=== PATIENT | male | born 1985 | race Caucasian/White ===

== ENCOUNTER 2022-01-18 12:58 | Outpatient (CLI) | payer OTHER ==
[2022-01-18 13:42] VITALS: BP 133/95
--- NOTE | 2022-01-18 13:42 | SLEEP CARE CONSULTATION ---
Information from patient questionnaire entered by Rimma Nichols MA. I have reviewed and concur with the information entered by Rimma Nichols MA. This document represents the service I personally performed and the decisions made by , Inez Ventura ARNP. History of Present Illness Service Date and Time: 01/18/2022 1258 Reason for Visit: New patient (ONSET 11/2014, NO PRIORS,) Chief Complaint: reports: Unrefreshed sleep, Snoring, Excessive daytime sleepine ss, Fatigue, Frequent awakenings at night Date of Onset: 4 plus years Usual bedtime: 900 pm Time it takes to fall asleep: 5 - 30 minutes Snores at night: Yes Observed to quit breathing while asleep: No Sleeps alone due to snoring: No Number of times waking at night: 2-4 Reasons for waking at night: reports: Snoring, Other (unknown reason, dog moving around at night) Toss, Turn, or Twitch while sleeping: Yes (jerk in sleep) Recalls having dreams: No (last time about 10 years ago) Usually gets out of bed at: [id number] week day [id number] weekends Feels refreshed in the morning: No Morning headache: Yes (2-3 times a week; last 1 hr to all day, takes meds after 1-2 hrs) Sleepy or fatigued during the day: Yes Ever fallen asleep while driving: No (gets tire but no drowsy driving) Takes day naps: Yes (tries every day; only 1 time every 2 weeks) Dreams during day naps: No Prior sleep studies: No Additional HPI information: I had the pleasure of seeing RAN TY today regarding the possibility of him having a sleep disorder. His current complaints are excessive daytime sleepiness, fatigue, frequent night awakenings, snoring and unrefreshed sleep. He states he is always tired. He can wake up and after 10 minutes go back to sleep. He wakes up 2-3 times a night. He snores loudly and his tells him he "jerks" in his sleep every night. He states if he is not actively moving around he will fall asleep. He will sit on the couch with and as she is talking he will fall asleep. He will try to read a book and fall asleep. He will try to watch TV and fall asleep. He has gained about 50 pounds over the last 5 years and is trying to lose weight. He will work out a the gym about 5 days a week. 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 Patient is and lives in [place] [place]. Have you smoked in the past 12 months: No Alcohol use: Yes Alcohol amount and frequency: 1 x MONTHLY Caffeine use: Yes Caffeine amount and frequency: 1-2 X DAILY Family History Family history of sleep disordered breathing: No Allergies and Home Medications Drug allergies reviewed: Yes (NKDA) Home medication list reviewed: Yes Allergy and home medication list: OTC pre-workout supplement, prn OTC analgesic like tylenol, aleve prn headaches Review of Systems Weight gain over past 5 years: 50 Cardiovascular: denies: high blood pressure Gastrointestinal: denies: heartburn Neurological: reports: headaches Psychiatric: reports: depression (no symptoms/depressive feelings) Ear/Nose/Throat: reports: wisdom teeth removed. denies: tonsillectomy Endocrine: reports: sluggishness Immunologic: denies: allergies to food or environment Physical Exam Vital signs obtained and entered by: Todd NICHOLS CMA AAMA Blood Pressure: 133/95 (RIGHT, PULSE 81, RESP 16,) Cuff size: wrist Heart Rate: 77 O2 Saturation: 97 (PAPER MASK) Height: 5 ft 10 in Weight: 230 lb (PT CLOTHES) Body Mass Index: 33.0 BMI Classification: Obese Neck circumference: 16.5 (INCHES) Mouth and throat: narrow oropharynx Soft palate: long Hard palate: normal Uvula: normal Uvula visualization: 50% Mallampati Class II Tongue: enlarged in size with teeth joya on lateral edges Tonsils: small Neck: normal w/o lymphadenopathy or thyromegaly Heart: regular rate and rhythm Lungs: clear bilaterally Impression and Plan 1. Suspected Obstructive Sleep Apnea-Hypopnea Syndrome, as suggested by a history of loud and irregular snoring, morning headache, frequent awakening during the night, unrefreshed sleep, cognitive impairment, and excessive daytime sleepiness. Narrow oropharynx and obesity are common predisposing factors for obstructive sleep apnea-hypopnea syndrome. I recommend proceeding to polyso mnography to confirm the diagnosis and to assess severity. If the patient has significant sleep disordered breathing, a manual CPAP titration study will also be performed to find the optimal treatment pressure. I informed the patient of what the sleep studies involve and after some discussion, obtained agreement to proceed. The pathophysiology of obstructive sleep apnea-hypopnea syndrome was discussed with the patient and health risks of cardiovascular and cerebrovascular disease if not treated. AAS brochure for obstructive sleep apnea-hypopnea syndrome given and reviewed. Risks of drowsy driving discussed in detail and patient advised to avoid long distance driving and to pulling unit floorhand at the first sign of drowsiness. Patient agreed to plan. * Schedule polysomnography * Avoid long distance driving or driving when feeling sleepy. * Avoid alcohol, sedative and muscle relaxant around bedtime. * Attempt to lose weight. * Review instructions provided by trained office staff on how to prepare for the sleep study. * Return for follow-up after sleep study completed. Counseling Topics: Weight loss health impact Visit Type: In Office Time Spent with Patient (minutes): 31 Provider Statement: I spent 100% of the Face to Face Visit with the patient with greater than 50% spent counseling the patient and coordination of care.
== END 2022-01-18 12:59 | disposition home or self-care (01) ==
LOC: SC 12:58
PROVIDERS: ATTEND Nurse Practitioner Family
DX: R06.83 Snoring (principal); R51.9 Headache, unspecified; G47.8 Other sleep disorders; G47.10 Hypersomnia, unspecified; R41.89 Other symptoms and signs involving cognitive functions and awareness; E66.9 Obesity, unspecified; Z68.33 Body mass index [BMI] 33.0-33.9, adult
CPT/HCPCS: 99203; 99212

== ENCOUNTER 2022-02-28 10:22 | Outpatient (CLI) | payer OTHER ==
[2022-02-28 10:46] VITALS: BP 128/70
--- NOTE | 2022-02-28 10:46 | SLEEP CARE CONSULTATION ---
Information from patient questionnaire entered by Rimma Haddad MA. I have reviewed and concur with the information entered by Rimma Haddad MA. This document represents the service I personally performed and the decisions made by , Inez Ventura ARNP. History of Present Illness Service Date and Time: 02/28/2022 1022 Initial [place] Sleepiness Scale score: 10 (2021) Current [place] Sleepiness Scale score: 14 (02/2022) Additional HPI information: RAN TY returns for follow up and results of the recently performed polysomnography. I explained the pathophysiology behind obstructive sleep apnea. We then spent quite a bit of time discussing different treatment options. For mild obstructive sleep apnea, surgery and oral appliance are alternatives to nasal CPAP therapy but in moderate or severe cases, nasal CPAP is the most effective and reliable treatment. Because apnea is primarily in supine position, then positional management therapy could be effective. Methods discussed such as positioning with pillows to prevent supine sleep. I reviewed the impact of weight changes on sleep apnea and strongly recommended losing weight. After some discussion, the patient opted to go with the nasal CPAP therapy. Nasal autoCPAP set at 4-15 cmH20 will be ordered with rationale explained. A manual titration study will be ordered if unable to find optimal pressure with office adjustments. I explained how CPAP machine works and what to expect when using the machine. Using CPAP every night in order to get used to it was emphasized. Patient advised to put CPAP mask on before getting into bed so as not to fall asleep without CPAP. To assist acclimation to CPAP use, it could also be used for a short time during day while reading or watching TV. The patient was instructed to call the CPAP supplier to discuss any mechanical problem that may occur. If the mask given is uncomfortable or is difficult to keep on through the night even with adjustment, contact the CPAP supplier as many will replace with another mask style if notified before 30 days. If snoring or perceives is not getting enough air or too much air from the machine, notify this office. AASM patient education PAP tips reviewed and given to patient. Patient does not drink alcohol. Patient was cautioned about risks of drowsy driving until sleepiness symptoms resolve. Patient denies drowsy driving. Sleep Study - Results Type of Sleep Study: Polysomnography (F/U POLY, 02/14/22 [facility],) Prior sleep studies: No Polysomnography/Home Sleep Study results: IMPRESSION: The quality of the study is good. The patient had normal sleep efficiency. The sleep architecture was normal as well. Respiratory monitoring showed mild obstructive sleep apnea- hypopnea (AHI = 8.3) associated with oxyhemoglobin desaturation and mild hypoxia ([place] oxygen saturation of 87% ). The respiratory events occurred mainly during supine REM sleep (supine AHI = 9.7; non-supine = 3.23). Snore was moderate to loud in intensity. There was no significant periodic leg movement of sleep. Cardiac rhythm was normal sinus rhythm without significant arrhythmia. No abnormal behavior (parasomnia) observed during the night. Allergies and Home Medications Known drug allergies: No Drug allergies reviewed: Yes Home medication list reviewed: Yes (no changes) Review of Systems Review of systems same as previous: Yes (no changes) Physical Exam Vital signs obtained and entered by: DIANA MENDEZ Blood Pressure: 128/70 (RIGHT, PULSE 86, RESP 18, ) Cuff size: wrist Heart Rate: 84 O2 Saturation: 97 (PAPER) Height: 5 ft 10 in Weight: 229 lb (UNIFORM AND BOOTS) Body Mass Index: 32.8 BMI Classification: Obese Impression and Plan 1. Obstructive Sleep Apnea-Hypopnea Syndrome, mild, with lowest oxygen saturation of 87%. Obviously this is the cause of the patients symptoms of unrefreshed sleep, and excessive daytime sleepiness. Positive pressure therapy could benefit anxiety and depression. As mentioned above, the patient will be started on nasal autoCPAP therapy with pressure set at 4-15 cmH2O. A manual titration study will be completed if unable to find optimal treatment pressure with office adjustments. Compliance guidelines also reviewed. A copy of compliance guidelines will be given for reference at check out. Because the apnea is more severe supine, I instructed to avoid sleeping supine using pillow positioning until able to start CPAP use. * Nasal auto CPAP therapy, pressure at 4-15 cm H2O. * Attempt to lose weight. * Avoid supine sleep until using CPAP. * Return one month after CPAP obtained. I will assess response to therapy and compliance at that time. Counseling Topics: Sleeping position, Weight loss health impact Visit Type: In Office Time Spent with Patient (minutes): 20 Provider Statement: I spent 100% of the Face to Face Visit with the patient with greater than 50% spent counseling the patient and coordination of care.
== END 2022-02-28 10:23 | disposition home or self-care (01) ==
LOC: SC 10:22
PROVIDERS: ATTEND Nurse Practitioner Family
DX: G47.33 Obstructive sleep apnea (adult) (pediatric) (principal); E66.9 Obesity, unspecified; Z68.32 Body mass index [BMI] 32.0-32.9, adult
CPT/HCPCS: 99212; 99213

== ENCOUNTER 2022-04-25 13:57 | Outpatient (CLI) | payer OTHER ==
[2022-04-25 14:56] VITALS: BP 138/89
--- NOTE | 2022-04-25 14:56 | SLEEP CARE CONSULTATION ---
Information from patient questionnaire entered by Rimma Haddad MA. I have reviewed and concur with the information entered by Rimma Haddad MA. This document represents the service I personally performed and the decisions made by , Inez Ventura ARNP. History of Present Illness Service Date and Time: 04/25/2022 1357 Previous diagnosis: Mild, Obstructive Sleep Apnea-Hypopnea Syndrome AHI: 8.3 (in 2021) Reason for follow up: first compliance (RESMED, VERMA 03/09/2022, ) Equipment type: CPAP Equipment obtained from: Doc (got initial supplies) Mask style: Full face Mask brand: Resmed ([id number]) Backup mask available: No (will keep old mask when replaced) Last cushion change: 1 month Prior sleep studies: No Type of Sleep Study: Polysomnography (F/U POLY, 02/14/22 [facility],) HPI additional information: RAN TY was diagnosed to have mild, AHI 8.3, obstructive sleep apnea- hypopnea syndrome and returned today for CPAP therapy first compliance follow- up. Sleep Study - Results Type of Sleep Study: Polysomnography (F/U POLY, 02/14/22 [facility],) Prior sleep studies: No CPAP Compliance Data - Data Reviewed with Patient Average duration of nightly device use: 6 HOURS 50 MINUTES Compliance rate %: 100 (03/25/2022-04/23/2022) Current pressure setting (cmH2O): 4-15 (median 6.8, avg 9.4, max 11.1) Average residual AHI: 1.0 Central apnea: .1 Obstructive apnea: .5 Hypopnea: .3 Average large leak: .8 Subjective Patient concerns: reports: mask leak noise (after moving and mask shifts; needs adjusted and then improves). denies: aerophagia, mask discomfort, air blowing in eyes, condensation in mask/hose, nasal congestion, dry mouth, nose, throat, epistaxis, other Observed to snore while using device: No Current pressure setting perceived as: comfortable On therapy, patient: reports: sleeping better, awakening more refreshed, being more awake and alert during the day, more rested overall. denies: drowsiness while driving Initial [place] Sleepiness Scale score: 10 (03/2022) Current [place] Sleepiness Scale score: 3 (04/25/2022) Allergies and Home Medications Known drug allergies: No Drug allergies reviewed: Yes Home medication list reviewed: Yes (no changes) Review of Systems Review of systems same as previous: Yes (no changes) Physical Exam Vital signs obtained and entered by: DIANA MENDEZ Blood Pressure: 138/89 (PULSE, RESP 18, RIGHT) Cuff size: wrist Heart Rate: 72 O2 Saturation: 98 Height: 5 ft 10 in Weight: 230 lb (PT CLOTHES) Body Mass Index: 33.0 BMI Classification: Obese Impression and Plan 1. Obstructive Sleep Apnea-Hypopnea Syndrome, mild, with excellent treatment compliance and good apnea control. On CPAP therapy, the patient has better sleep quality and is more rested overall. The patients pressure will be changed to autoCPAP 9-11 cmH20 to reflect pressure being used. Patient advised to contact me if pressure change is uncomfortable so that it can be adjusted. Goals for apnea control discussed. Patient has been getting some leaking from the mask dislodging when he sleeps on his side. He is washing his mask daily. Mask leaks predominately from when patient sleeps on their side can be reduced by using a CPAP pillow. These can be purchase online. He voiced understanding. Patient's apnea severity and rationale for treatment to reduce apnea, improve sleep quality and reduce cardiovascular and cerebrovascular events was reviewed. I also reviewed the benefit of consistent device use of CPAP for depression/anxiety. He was encouraged to try to lose weight. * Changeauto CPAP pressure to 9-11 cmH2O * Notify me if snoring with mask or feeling that the pressure is too much or too little * Attempt to lose weight * Call this office if any problems using CPAP * Return for follow up in 1-2 months, or sooner if concerns arise Counseling Topics: Spare mask, Weight loss health impact Visit Type: In Office Time Spent with Patient (minutes): 21 Provider Statement: I spent 100% of the Face to Face Visit with the patient with greater than 50% spent counseling the patient and coordination of care.
== END 2022-04-25 13:58 | disposition home or self-care (01) ==
LOC: SC 13:57
PROVIDERS: ATTEND Nurse Practitioner Family
DX: G47.33 Obstructive sleep apnea (adult) (pediatric) (principal); E66.9 Obesity, unspecified; Z68.33 Body mass index [BMI] 33.0-33.9, adult
CPT/HCPCS: 99212; 99213

== ENCOUNTER 2023-10-09 15:08 | Outpatient (CLI) | payer OTHER ==
--- NOTE | 2023-10-09 15:29 | Sleep Patient Instructions ---
Sleep Center Visit Summary - Patient Visit Information Reason for Visit: Annual Visit - Patient Instructions Additional Instructions: You will continue with CPAP therapy with pressure set at 9-11 cmH2O. A supply prescription will be updated with your DME. We encourage you to continue to try to lose weight. Please follow up with the sleep care office in 1-2 months. - Clinic Information Contact: [facility] [address] [place] [address] [email or web address] T: [phone]
--- NOTE | 2023-10-09 15:34 | SLEEP CARE CONSULTATION ---
Information from patient questionnaire entered by Obdulia Huerta. I have reviewed and concur with the information entered by Obdulia Huerta. This document represents the service I personally performed and the decisions made by , Inez Ventura ARNP. History of Present Illness Service Date and Time: 10/09/2023 1508 Previous diagnosis: Mild, Obstructive Sleep Apnea-Hypopnea Syndrome AHI: 8.3 (in 2021) Reason for follow up: annual (LAST SEEN 09/2022) Equipment type: CPAP (RESMED 02/2022) Equipment obtained from: [employer] (getting supplies) Mask style: Full face Mask brand: Resmed ([id number]) Backup mask available: Yes (old mask) Last cushion change: over 6 months Prior sleep studies: No Type of Sleep Study: Polysomnography (F/U POLY, 02/14/22 [facility],) HPI additional information: RAN TY was diagnosed to have mild, AHI 8.3, obstructive sleep apnea- hypopnea syndrome and returned today for CPAP therapy annual follow-up. Sleep Study - Results Type of Sleep Study: Polysomnography (F/U POLY, 02/14/22 [facility],) Prior sleep studies: No CPAP Compliance Data - Data Reviewed with Patient Average duration of nightly device use: 5 HRS 27 MIN Compliance rate %: 53 (10/05/22-10/04/23; 236/365 days used) Current pressure setting (cmH2O): 9-11 Average residual AHI: 0.9 Central apnea: 0.4 Obstructive apnea: 0.3 Average large leak: 0.2 L/min Subjective Missed days of use due to: reports: travel, other (will take off mask during the night sometimes) Patient concerns: reports: nasal congestion (this is all the time). denies: aerophagia, mask discomfort, air blowing in eyes, mask leak noise, condensation in mask/hose, dry mouth, nose, throat, epistaxis Observed to snore while using device: Yes (sometimes) Current pressure setting perceived as: comfortable On therapy, patient: reports: other (not feeling rested in last 6 months to year). denies: drowsiness while driving Initial [place] Sleepiness Scale score: 10 (03/2022) Current [place] Sleepiness Scale score: 7 (10/09/23) Allergies and Home Medications Known drug allergies: No Drug allergies reviewed: Yes Home medication list reviewed: Yes ( no changes) Allergy and home medication list: Allergies No Known Drug Allergies Allergy (Verified 10/08/23 09:06) Review of Systems Review of systems same as previous: No (IBS-C) Physical Exam Vital signs obtained and entered by: OBDULIA Espinoza MA Blood Pressure: 102/64 (LEFT ARM) Cuff size: regular Heart Rate: 70 O2 Saturation: 95 Height: 5 ft 10 in Weight: 241 lb 6.4 oz Weight change since last visit: 4 lb gain Body Mass Index: 34.6 BMI Classification: Obese Impression and Plan 1. Obstructive Sleep Apnea-Hypopnea Syndrome, mild, with fair treatment compliance and good apnea control. On CPAP therapy, he is here have better sleep and feel more rested but lately not feel he is more rested overall. Patient has significant improvement of their sleep apnea and is satisfied with current CPAP therapy. His compliance is reduced and I encouraged him to try to increase time in the mask to improve his overall restfulness. He voiced understanding. I will have him followup in 1-2 months to recheck compliance. He also asks to try a different full face mask. I will add a mask refitting for full face masks to his supply prescription. Patient's apnea severity and rationale for treatment to reduce apnea, improve sleep quality and reduce cardiovascular and cerebrovascular events was reviewed. I also reviewed the benefit of consistent device use of CPAP for depression/anxiety. 2. Obesity, unspecified. Currently patients BMI is 34.6. Obesity increases the risk of apnea, CPAP pressure requirements and overall health risks especially cardiovascular and diabetes. Thus patient is advised to lose weight. * Continue auto CPAP pressure at 9-11 cmH2O * Update supply prescription * Mask refitting for full face mask * Notify me if snoring with mask or feeling that the pressure is too much or too little * Attempt to lose weight * Call this office if any problems using CPAP * Return for follow up in 1-2 months, or sooner if concerns arise Counseling Topics: Spare mask, Weight loss health impact Prescriptions: Device supplies Follow up with Sleep Care in: 1-2 months Visit Type: In Office Time Spent with Patient (minutes): 20 Provider Statement: I spent 100% of the Face to Face Visit with the patient with greater than 50% spent counseling the patient and coordination of care.
[2023-10-09 16:12] VITALS: BP 102/64; O2SAT 95
== END 2023-10-09 15:09 | disposition home or self-care (01) ==
LOC: SC 15:08
PROVIDERS: ATTEND Nurse Practitioner Family
DX: G47.33 Obstructive sleep apnea (adult) (pediatric) (principal); E66.9 Obesity, unspecified; Z68.34 Body mass index [BMI] 34.0-34.9, adult
CPT/HCPCS: 99212; 99213

== ENCOUNTER 2023-12-11 15:11 | Outpatient (CLI) | payer OTHER ==
--- NOTE | 2023-12-11 15:30 | Sleep Patient Instructions ---
Sleep Center Visit Summary - Patient Visit Information Reason for Visit: 2-month follow-up - Patient Instructions Additional Instructions: You were here for follow up of CPAP therapy. You will be continued on CPAP therapy with pressure at 9-11 cmH2O. You should follow up with sleep care in 12 months. You may contact us sooner for any questions or concerns. - Clinic Information Contact: [facility] [address] [place] [address] [email or web address] T: [phone]
--- NOTE | 2023-12-11 15:34 | SLEEP CARE CONSULTATION ---
Information from patient questionnaire entered by Obdulia Huerta. I have reviewed and concur with the information entered by Obdulia Huerta. This document represents the service I personally performed and the decisions made by , Inez Ventura ARNP. History of Present Illness Service Date and Time: 12/11/2023 1511 Previous diagnosis: Mild, Obstructive Sleep Apnea-Hypopnea Syndrome AHI: 8.3 (in 2021) Reason for follow up: other (2 MONTH F/U) Equipment type: CPAP (RESMED 11, 02/2022) Equipment obtained from: [employer] ([employer]) Mask style: Full face Mask brand: Resmed (Airfit F20, medium cushion) Backup mask available: Yes Last cushion change: 1.5 weeks Prior sleep studies: No Type of Sleep Study: Polysomnography (F/U POLY, 02/14/22 [facility],) HPI additional information: RAN TY was diagnosed to have mild, AHI 8.3, obstructive sleep apnea- hypopnea syndrome and returned today for CPAP therapy two month follow-up. Sleep Study - Results Type of Sleep Study: Polysomnography (F/U POLY, 02/14/22 [facility],) Prior sleep studies: No CPAP Compliance Data - Data Reviewed with Patient Average duration of nightly device use: 5 HRS 46 MINS Compliance rate %: 77 (10/08/23-12/06/23; 55/60 days used) Current pressure setting (cmH2O): 9-11 Average residual AHI: 0.6 Central apnea: 0.2 Obstructive apnea: 0.2 Average large leak: 0.7 L/min Subjective Patient concerns: reports: nasal congestion (has all the time). denies: aerophagia, mask discomfort, air blowing in eyes, mask leak noise, condensation in mask/hose, dry mouth, nose, throat, epistaxis Observed to snore while using device: No Current pressure setting perceived as: comfortable On therapy, patient: reports: sleeping better, more rested overall. denies: drowsiness while driving Initial [place] Sleepiness Scale score: 10 (03/2022) Current [place] Sleepiness Scale score: 9 (12/11/23) Allergies and Home Medications Known drug allergies: No Drug allergies reviewed: Yes Home medication list reviewed: Yes (no changes) Allergy and home medication list: Allergies No Known Drug Allergies Allergy (Verified 12/07/23 12:02) Review of Systems Review of systems same as previous: Yes (NO CHANGE) Physical Exam Vital signs obtained and entered by: OBDULIA Espinoza MA Blood Pressure: 131/71 (RIGHT ARM) Cuff size: regular Heart Rate: 63 O2 Saturation: 98 Height: 5 ft 10 in Weight: 238 lb 9.6 oz Body Mass Index: 34.2 BMI Classification: Obese Impression and Plan 1. Obstructive Sleep Apnea-Hypopnea Syndrome, mild, with good treatment compl iance and good apnea control. On CPAP therapy, the patient has better sleep quality and is more rested overall. Patient has significant improvement of their sleep apnea and is satisfied with current CPAP therapy. Patient states he has been more tired lately but when we reviewed his information it shows that his average night of sleep is 5 hours and 46 minutes. Most people require 7-9 hours of sleep for optimal mental and physical function. Less than 5-6 hours of sleep consistently can contribute to health risks and mortality. Thus patient is advised to strive for a minimum of 7 hours of sleep. He voiced understanding. Patient's apnea severity and rationale for treatment to reduce apnea, improve sleep quality and reduce cardiovascular and cerebrovascular events was reviewed. I also reviewed the benefit of consistent device use of CPAP for depression/anxiety. 2. Obesity, unspecified. Currently patients BMI is 34.2. Obesity increases the risk of apnea, CPAP pressure requirements and overall health risks especially cardiovascular and diabetes. Thus patient is advised to lose weight. * Continue auto CPAP pressure at 9-11 cmH2O * Notify me if snoring with mask or feeling that the pressure is too much or too little * Attempt to lose weight * Call this office if any problems using CPAP * Return for follow up in 12 months, or sooner if concerns arise Counseling Topics: Spare mask, Weight loss health impact Follow up with Sleep Care in: 1 year Visit Type: In Office Time Spent with Patient (minutes): 13 Provider Statement: I spent 100% of the Face to Face Visit with the patient with greater than 50% spent counseling the patient and coordination of care.
[2023-12-11 15:35] VITALS: BP 131/71; O2SAT 98
== END 2023-12-11 15:12 | disposition home or self-care (01) ==
LOC: SC 15:11
PROVIDERS: ATTEND Nurse Practitioner Family
DX: G47.33 Obstructive sleep apnea (adult) (pediatric) (principal); E66.9 Obesity, unspecified; Z68.34 Body mass index [BMI] 34.0-34.9, adult
CPT/HCPCS: 99212

== ENCOUNTER 2024-06-13 12:35 | Emergency (ER) | payer OTHER ==
--- NOTE | 2024-06-13 13:07 | ED Physician Documentation ---
History of Present Illness - Stated complaint Stated Complaint: LOC/ANKLE INJURY - Chief complaint Chief Complaint: Trauma Ext - History obtained from History obtained from: Patient - Additonal information Additional information: Otherwise healthy 38-year-old gentleman who is active duty in the [employer]. He was playing kickball today and collided with another player injuring his left ankle. He made his way back to the dog out and about 30 seconds later had a syncopal episode lasting maybe 30 seconds. This time without injury. There was no head injury at any time. He feels back to normal now other than the ankle pain. No chest pain or trouble breathing. PD PAST MEDICAL HISTORY - Past Medical History Past Medical History: No - Past Surgical History Past Surgical History: No - Present Medications Home Medications: Ambulatory Orders Medication Instructions Recorded Confirmed Ibuprofen [Motrin] 800 mg PO Q8H PRN #30 tablet 06/13/24 - Allergies Allergies/Adverse Reactions: Allergies Allergy/AdvReac Type Severity Reaction Status Date / Time No Known Drug Allergies Allergy Verified 06/13/24 12:48 - Social History Does the pt smoke?: No Smoking Status: Never smoker Does the pt drink ETOH?: No Does the pt have substance abuse?: No - Immunizations Immunizations are current?: Yes - POLST Patient has POLST: No PD ED PE NORMAL - Vitals Vital signs reviewed: Yes - General General: Alert and oriented X 3, No acute distress - HEENT HEENT: PERRL, EOMI - Neck Neck: Supple, no meningeal sign, No bony TTP - Cardiac Cardiac: RRR, No murmur - Respiratory Respiratory: No respiratory distress, Clear bilaterally - Abdomen Abdomen: Non tender - Extremities Extremities: Other (Tender and swollen over the lateral malleolus of the left ankle) - Neuro Neuro: Alert and oriented X 3, 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 Relevant findings are: Rate: Rate (enter#) (53) Rhythm: NSR [place]: Normal Intervals: Normal SC QRS: Normal Ischemia: Normal ST segments, Non specific changes (Early R wave progression) Computer interpretation: Agree with computer - Rads (name of study) R ankle xr Relevant Findings:: Final report received (Read as negative by the radiologist but I think there is a tiny little chip fracture at the very distal tip of the fibula), EMP independent interpretation of test PD Medical Decision Making - ED course ED course: 38-year-old gentleman with a left ankle injury. Then had what sounds like a vasovagal episode due to the stressor of it about 30 seconds later. There is no head injury or history or physical exam findings of a more concerning cause for syncope. Will obtain EKG as well as ankle radiography. EKG was unremarkable. His ankle x-ray was read officially as negative by the radiologist. I do think there is a tiny chip fracture at the very distal tip of the lateral malleolus/distal fibula. Given how distal it is in [place]'s though I think it can be treated with weightbearing as tolerated in a boot. Departure - Departure Disposition: 01 Home, Self Care Clinical Impression: Vasovagal syncope, Left ankle sprain Condition: Stable Record reviewed to determine appropriate education?: Yes Instructions: ED Sprain Ankle W X Ray, ED Syncope Vasovagal Prescriptions: Ibuprofen [Motrin] 800 mg PO Q8H PRN #30 tablet PRN Reason: PAIN &/OR FEVER Comments: As discussed, it looks like to me on the x-ray you probably do have a very tiny probably inconsequential chip fracture of the very distal fibula that although technically a break could be treated as a sprain with relative immobilization in the boot, weightbearing as tolerated (i.e. you can start walking on it in the boot when not limited by pain) and follow-up with orthopedics. [place] Forms: PCP List, Activity restrictions Discharge Date/Time: 06/13/24 14:28
[2024-06-13] MEDS: IBUPROFEN 800 MG TABLET PO STA (13:26)
--- NOTE | 2024-06-13 14:09 | XRAY Report ---
PROCEDURE: Ankle 3+V LT INDICATIONS: Trauma TECHNIQUE: 2 views of the ankle were acquired. COMPARISON: None. FINDINGS: Bones: No fractures or dislocations. Ankle mortise is normally aligned. No suspicious bony lesions . Soft tissues: No tibiotalar joint effusion. Achilles tendon appears normal. Lateral malleolar soft tissue swelling. IMPRESSION: No acute bony abnormality. If pain persists with conservative management, consider repeat x-ray in 10 -14 days or cross-sectional imaging. Reviewed by: Jameson Flaherty MD on 06/13/2024 2:07 PM PDT Approved by: Jameson Flaherty MD on 06/13/2024 2:07 PM PDT Station ID: [id number]
[2024-06-13 14:39] VITALS: BP 107/77; O2SAT 100
== END 2024-06-13 14:28 | disposition home or self-care (01) ==
LOC: ED 12:35
DX: S93.402A Sprain of unspecified ligament of left ankle, initial encounter (principal); W51.XXXA Accidental striking against or bumped into by another person, initial encounter; Y93.66 Activity, soccer; Y92.322 Soccer field as the place of occurrence of the external cause; R55 Syncope and collapse
CPT/HCPCS: 73610; 93005; 99283; 99284; A9270